=== PATIENT | male | born 1965 | race Caucasian/White ===

== ENCOUNTER 2019-01-11 10:16 | Inpatient (IN) | payer BC ==
[~2019-01-11] VITALS: Ht 177.8 cm; Wt 54.1 kg
[2019-01-11 10:22] VITALS: BP 149/100
[2019-01-11 10:29] LABS: BASOPHILS 0.3 % (0.0-2.0); EOSINOPHILS 5.5 % (0.0-3.0); HEMATOCRIT 37.8 % (42.0-52.0); LYMPHOCYTES 17.4 % (24.0-44.0); MCH 32.6 pg (26.0-34.0); MCHC 34.3 g/dL (28.0-37.0); MCV 95.1 fL (80.0-100.0); MONOCYTES 11.7 % (1.0-8.0); PLATELET COUNT 193 thou/uL (150-400); POLYS 65.1 % (36.0-66.0); RBC 3.97 mil/uL (4.50-6.00); RDW 13.4 % (10.5-14.5); WBC 4.6 thou/uL (4.0-11.0)
[2019-01-11 10:38] LABS: CALCIUM 8.7 mg/dL (8.5-10.1); CREATININE 0.8 mg/dL (0.7-1.3); POTASSIUM 3.6 mmol/L (3.5-5.1)
[2019-01-11] MEDS ORDERED: LISINOPRIL10 MG PO (10:38)
[2019-01-11] MEDS ORDERED: TRAZODONE HCL100 MG PO (10:40)
[2019-01-11] MEDS ORDERED: ATORVASTATIN CA40 MG PO (10:41)
[2019-01-11] MEDS ORDERED: ASA5UEC PO (10:41)
[2019-01-11] MEDS ORDERED: LISINOPRIL20 MG PO (10:41)
[2019-01-11] MEDS ORDERED: PROZAC20 MG PO (10:42)
[2019-01-11] MEDS ORDERED: KEPPRA 500 MG500 M1 PO (10:42)
[2019-01-11] MEDS ORDERED: COREG6.25 MG PO (10:42)
[2019-01-11 10:50] LABS: PROTIME 10.8 Seconds (9.3-11.4)
[2019-01-11 10:51] LABS: ALBUMIN 3.1 g/dL (3.4-5.0); TOTAL BILIRUBIN 0.5 mg/dL (<0.1-1.0); TOTAL PROTEIN 7.1 g/dL (6.4-8.2)
[2019-01-11 10:52] LABS: MAGNESIUM 1.3 mg/dL (1.8-2.4)
[2019-01-11 10:53] LABS: TROPONIN-I <0.06 ng/mL (<0.06)
[2019-01-11 12:08] VITALS: BP 165/94
--- NOTE | 2019-01-11 12:30 | NUR ---
ATTEMPTED REPORT FOR THE SECOND TIME, NURSE ON PHONE WITH A DOCTOR
[2019-01-11 12:40] VITALS: BP 122/82
[2019-01-11 13:08] VITALS: BP 135/92
--- NOTE | 2019-01-11 16:11 | NUR ---
PT TO THEUNIT FROM THE ED. ASSESSMENT CHARTED - PT HAS BEEN SLEEPING MOSTLY SINCE ARRIVAL. IS TOLERATING DIET AND FLUIDS. MEDS PER MAR - MAG HUNG AND THIAMINE TO BE GIVEN. NO CO'S OF PAIN OR NAUSEA. HAS BEEN AT THE BEDSIDE - AND PATIENT 3 YEARS AGO - (PT) CALLED LAST WEEK AND INFORMED HER HE DID NOT WANT TO BY HIMSELF SO SHE TOOK HIM OVER TO HER HOUSE AND HE HAS BEEN THERE SINCE - PATIENT DOES HAVE CHILDREN BUT HAS NO/LITTLE CONTACT WITH THEM. PT APPEARS TO BE RESTING QUIETLY AT THE PRESENT TIME.
[2019-01-11 18:52] LABS: URINE BILIRUBIN NEGATIVE (Negative); URINE BLOOD NEGATIVE (Negative); URINE CLARITY CLEAR; URINE COLOR YELLOW; URINE GLUCOSE-RANDOM* NEGATIVE (Negative); URINE KETONES NEGATIVE (Negative); URINE LEUKOCYTES-REFLEX NEGATIVE (Negative); URINE NITRITE-REFLEX NEGATIVE (Negative); URINE PROTEIN (DIPSTICK) NEGATIVE (Negative); URINE SPECIFIC GRAVITY <= 1.005 (1.005-1.035); URINE UROBILINOGEN 0.2 E.U./dl (0.2-1.0)
[2019-01-11 19:00] LABS: AMP/METHAMP Negative (Negative); BARBITURATES Negative (Negative); BENZODIAZEPINES POSITIVE (Negative); COCAINE Negative (Negative); METHADONE Negative (Negative); OPIATES Negative (Negative); PCP Negative (Negative)
[2019-01-11 20:10] VITALS: BP 148/95
[2019-01-12 00:30] VITALS: BP 136/83
[2019-01-12 04:55] VITALS: BP 129/75
--- NOTE | 2019-01-12 06:35 | NUR ---
PATIENTS CARES WERE ASSUMED AT 2300. PATIENT WAS ASSESSED AND MEDS WERE PASSED. HOURLY ROUNDING WAS DONE. BED ALARMM IS ON AND THE BED IS IN A LOW AND LOCKED POSITION
[2019-01-12 08:29] VITALS: BP 151/101
--- NOTE | 2019-01-12 10:22 | NUR ---
INITIAL ASSESSMENT: Pt evaluated for d/c planning needs. Reviewed chart and spoke with nurse, physician, pt and spouse. Pt is alert and oriented. Pt was living alone and has been from his for about 3 years. Recently pt moved in with his and her disabled brother. Pt was independent with ADL's and has been seen at [facility] recently. Pt states he has [employer] insurance and provided card. Copy of card taken and given to business office. Pt has cane at home and has not had home health. Will remain available to assist as needed.
[2019-01-12 14:27] VITALS: BP 151/101
[2019-01-12 15:33] VITALS: BP 157/89
--- NOTE | 2019-01-12 15:49 | NUR ---
PT ALERT AND ORIENTED TIMES TWO, VERY CONFUSED. VSS, 98%RA, SR ON TELE. IVF INFUSING PER ORDER. PT DENIES PAIN/SOA. PT UP TO CHAIR WITH STANDBY ASSIST. PT HAS POOR APPETITE. PT AT BEDSIDE. WILL CONTINUE TO MONITOR,
[2019-01-12 20:05] VITALS: BP 121/69
[2019-01-13 03:45] LABS: HEMATOCRIT 30.1 % (42.0-52.0); MCH 32.3 pg (26.0-34.0); MCHC 33.4 g/dL (28.0-37.0); MCV 96.8 fL (80.0-100.0); RBC 3.11 mil/uL (4.50-6.00); RDW 13.3 % (10.5-14.5); WBC 5.9 thou/uL (4.0-11.0)
[2019-01-13 03:58] LABS: CALCIUM 7.7 mg/dL (8.5-10.1); CREATININE 0.6 mg/dL (0.7-1.3); MAGNESIUM 1.2 mg/dL (1.8-2.4); PHOSPHORUS 2.9 mg/dL (2.5-4.9)
[2019-01-13 04:00] LABS: POTASSIUM 2.7 mmol/L (3.5-5.1)
[2019-01-13 04:15] VITALS: BP 137/93
[2019-01-13 08:00] VITALS: BP 149/84
--- NOTE | 2019-01-13 08:10 | NUR ---
ASSESSMENT CHARTED. PATIENT HAS CRITICAL POTASSIUM AND LOW MAGNESIUM. SPOKE WITH Moni ZACARIAS, GOT ORDERS STARTED DRIPS. PATIENT GOT UP TO BATHROOM UP WITH CANE AND ASSIST X 1.
--- NOTE | 2019-01-13 09:46 | NUR ---
Approached by RN last evening that wanted to sp with SW prior to psychiatrist. 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 She requested medical and financial DPOA. Discussed we do not do financial DPOA only medical. I will bring brochure to room but he is confused and cannot complete at this time. DR Medina on floor rounding she requested to see patient prior to SW. Psychiatrist evaled patient. SW brought brochure to room and not present in room.
--- NOTE | 2019-01-13 10:21 | NUR ---
Assumed pt care at 7am.Pt in bed resting and wanted his called this am to bring him food from home.Assessment completed.vss. called and said she's on the way to see pt.Am meds given and well tolerated.Assisted pt to bathroom. C/O soa.o2 sat on room air was 100%. Rt notified and breathing tx given with relief.Annette premium note interest calculator clerk here,order noted.Pt in bed sleeping at present without c/o.Will continue to monitor.
[2019-01-13 10:59] LABS: % SATURATION 20 % (20-39); IRON 31 ug/dL (65-175); TIBC 152 ug/dL (250-450)
[2019-01-13 11:11] LABS: OBSERVED RETIC COUNT 1.2 % (0.6-2.6)
[2019-01-13 11:30] VITALS: BP 131/86
[2019-01-13 16:00] VITALS: BP 134/86
[2019-01-13 16:18] LABS: MAGNESIUM 1.9 mg/dL (1.8-2.4); POTASSIUM 3.6 mmol/L (3.5-5.1)
[2019-01-13 19:56] VITALS: BP 139/92
[2019-01-14 05:38] VITALS: BP 151/100
[2019-01-14 08:46] VITALS: BP 143/89
--- NOTE | 2019-01-14 09:00 | NUR ---
ASSESSMENT CHARTED. PATIENT IN ISOLATION TO RULE OUT C-DIFF SINCE HE HAS HAD DIARRHEA SEVERAL TIMES. PATIENT HAD ONE BOWEL MOVEMENT DURING SHIFT THAT WAS LOOSE. DR PUCKETT SAW THE PATIENT AND ASKED NURSING TO ASK THE SPOUSE WHEN SHE ARRIVED IF THE PATIENT IS ON KEPPRA FOR SEIZURES THE PATIENT IS NOT A GOOD HISTORIAN OF HIS OWN MEDICATIONS. C/O HEADACHE DURING SHIFT AND HE DID NOT SLEEP WELL DURING THE NIGHT.
[2019-01-14] MEDS ORDERED: VITAMIN B-1100 M2 PO (12:53)
[2019-01-14 13:12] VITALS: BP 143/89
--- NOTE | 2019-01-14 13:52 | NUR ---
PATIENT DISCHARGED TO HOME ACCOMPANIED BY SPOUSE. Nader ZAPIEN. DISCHARGE INSTRUCTIONS AND PRESCRIPTION GIVEN TO PATIENT, STATED UNDERSTANDING.
--- NOTE | 2019-01-14 14:33 | HC ---
[facility] [place] [address] CONSULTATION Name: KORTNEY CHAPARRO Room #: 203-P [facility] IN M.R.#: [id number] Admission: 01/11/19 ������������������ Attend Phys: Lisa Negrete Discharge: 01/14/19 ������������������ Date of : 61 Report #: [id number] THIS REPORT FOR: //name// CC: FAM unknown Lisa Negrete DATE OF SERVICE: 01/12/2019 HISTORY OF PRESENT ILLNESS: This is a 53-year-old male patient who is a poor historian. He indicated that he was having some altered mental status. I did not know whether it was aphasia or whether it was altered mental status when this patient had these issues. He feels he is better. REVIEW OF SYSTEMS: A 14-point review of system was carried out. 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 I do not know what treatment has been done in this patient. He indicates that he used to drink alcohol in excess, but he does not drink that much alcohol now. He is on Keppra here. I did not get good history regarding his seizures. He indicates he has some vision problem because of his AV malformation. 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 He said it is not congenital, but it happened a long time ago. History is poor at best. He does have a history of depression and in fact, he was seen by psychiatrist during this admission. He said he does have a history of hypertension. He denies any ENT, cardiac, respiratory, GI, , musculoskeletal, constitutional, dermatological, hematological, psychiatric, throat, allergic symptom associated with present symptomatology except as summarized above. PAST MEDICAL HISTORY: Positive for AV malformation. FAMILY HISTORY: Negative for epilepsy. SOCIAL HISTORY: He has a history of drinking alcohol. He is evasive about how much alcohol he drinks. He said he used to drink a lot of alcohol, but presently, he does not drink that much and drinks about 2-3 beers a day. PHYSICAL EXAMINATION: Indicates he is alert. He is responsive. He can follow commands. His speech looks okay, but his memory and fund of knowledge is diminished. Cranial nerve examination 2-12 indicates that the left eye is smaller than the right eye. Neuromuscular examination is symmetrical for strength, sensation, tone and reflexes. I could not look at the fundus. There is no meningeal sign. Cardiac examination appears unremarkable. Respiratory examination also is unremarkable. He does not have any marked rhonchi. His pulses are somewhat difficult to feel. His blood pressure is 157/89, respirations 18, pulse is 62 and temperature is 98. LABORATORY DATA: Indicates a white count of 4.6. Sodium is 131. He had a CT [address] [address] CONSULTATION Name: KORTNEY CHAPARRO Room #: 203-P [facility] IN M.R.#: [id number] Admission: 01/11/19 ������������������ Attend Phys: Lisa Negrete Discharge: 01/14/19 ������������������ Date of : 61 Report #: [id number] angiography, which shows no bleeding from AV malformation. IMPRESSION: It is possible that he is having some seizures from the arteriovenous malformation. He is already on Keppra. We will get an EEG done and readjust the dose as necessary. He needs an evaluation and will followed up by a neurosurgeon for the management of his arteriovenous malformation. He may already be doing in Research, but he needs to follow up with them. He does have some metabolic disturbances and that need to be addressed and we will defer that to you. Thank you very much for this referral. ��������������������������������������������� <ELECTRONICALLY SIGNED> ���������������������������������������� By: Artem Dalal MD ��������������������������������������������� 01/14/19 1433 [id number] Artem Dalal MD /nt
--- NOTE | 2019-01-14 14:34 | EEG ---
[facility] [place] [address] ELECTROENCEPHALOGRAM Name: KORTNEY CHAPARRO Room #: 203-P [facility] IN M.R.#: [id number] ������������������ Admission: 01/11/19 ������������������ Attend Phys: Lisa Ware Discharge: 01/14/19 ������������������ Date of : 61 Report #: [id number] ����������������������������������������������������������������� [id number] THIS REPORT FOR: //name// CC: FAM unknown Lisa Negrete EEG: This patient is being evaluated for altered mental status. EEG was done by placing the electrodes by standard 10-20 system of electrode placement. Both referential and sequential montages were used for recording. Background activity in this patient's EEG is about 10 Hz and 30 microvolt. The patient became drowsy and that is associated with bilateral slowing and vertex sharp waves. Photic stimulation was unremarkable. Throughout the records, no active epileptiform activity was noticed. IMPRESSION: This patient's EEG is within normal limits. Thank you very much for this referral. ���������������������������������������� <ELECTRONICALLY SIGNED> ���������������������������������������� By: Artem Dalal MD ��������������������������������������������� 01/14/19 1434 [id number] Artem Dalal MD /nt
== END 2019-01-14 13:58 | disposition home or self-care (01) | DRG 70 ==
LOC: ER 10:16 → EROBS 11:36 → 2N 11:36 → ENTRNSPT 01-14 13:51 → EDTRNSPTSTS 01-14 13:52 → 2N 01-14 13:58
PROVIDERS: Emergency Medicine; Hospitalist; Internal Medicine Geriatric Medicine; ADMIT Hospitalist
DX: G93.40 Encephalopathy, unspecified (principal); Q28.2 Arteriovenous malformation of cerebral vessels; E43 Unspecified severe protein-calorie malnutrition; E72.20 Disorder of urea cycle metabolism, unspecified; F10.239 Alcohol dependence with withdrawal, unspecified; Z68.1 Body mass index [BMI] 19.9 or less, adult; D64.9 Anemia, unspecified; G40.909 Epilepsy, unspecified, not intractable, without status epilepticus; E83.42 Hypomagnesemia; E87.6 Hypokalemia; F17.200 Nicotine dependence, unspecified, uncomplicated; Y90.9 Presence of alcohol in blood, level not specified; I10 Essential (primary) hypertension; Z86.73 Personal history of transient ischemic attack (TIA), and cerebral infarction without residual deficits
CPT/HCPCS: 10081; 10797